=== PATIENT | female | born 1950 | race Hispanic/Latino ===

== ENCOUNTER 2020-12-25 10:38 | Outpatient (CLI) | payer MEDICARE, OTHER | END 2020-12-25 10:39 | disposition home or self-care (01) | LOC: CSHMRI 10:38 | PROVIDERS: ATTEND Psychiatry & Neurology Neurology | DX: G31.1 Senile degeneration of brain, not elsewhere classified (principal) | CPT/HCPCS: 70553; 82565 ==

== ENCOUNTER 2022-01-30 13:09 | Emergency (ER) | payer OTHER, MEDICARE | END 2022-01-30 16:07 | disposition home or self-care (01) | LOC: CSHERS 13:09 | DX: S09.90XA Unspecified injury of head, initial encounter (principal); S63.502A Unspecified sprain of left wrist, initial encounter; I25.10 Atherosclerotic heart disease of native coronary artery without angina pectoris; I11.0 Hypertensive heart disease with heart failure; I50.9 Heart failure, unspecified; E11.9 Type 2 diabetes mellitus without complications; E78.5 Hyperlipidemia, unspecified; E78.00 Pure hypercholesterolemia, unspecified; W01.198A Fall on same level from slipping, tripping and stumbling with subsequent striking against other object, initial encounter | CPT/HCPCS: 70450 ==

== ENCOUNTER 2023-11-12 10:23 | Emergency (ER) | payer MEDICARE, OTHER ==
[2023-11-12 10:54] LABS: Bilirubin Neg (Negative); Blood, Urine Negative (Negative); Clarity Slightly Cloudy (Clear); Glucose, Urine (Dipstick) Normal (Negative); Ketone, Urine Negative (Negative); Leukocyte 100 (Negative); Nitrite Negative (Negative); Protein, Urine (Dipstick) Negative (Neg-Trace); Urobilinogen Normal mg/dL (Less than 2)
[2023-11-12 11:03] LABS: Bacteria/HPF 3+ HPF (None Seen); RBC/HPF 0-3 HPF (0-3)
[2023-11-12 11:22] LABS: ALT (SGPT) 13 U/L (8-55); AST (SGOT) 24 U/L (5-34); Albumin 4.2 g/dL (3.4-4.8); Alkaline Phosphatase 111 U/L (40-110); Anion Gap 11 mmol/L (10-20); BUN (Urea Nitrogen) 39 mg/dL (9.8-20.1); Bilirubin, Total 0.2 mg/dL (0.2-1.2); Calc. Creatinine Clearance 0 mL/min (70-130); Calcium 8.8 mg/dL (7.8-10.44); Carbon Dioxide 27 mmol/L (23-31); Chloride 101 mmol/L (98-107); Estimated GFR 47; Globulin 2.1 g/dL (2.4-3.5); Glucose 191 mg/dL (83-110); Lipase 41 U/L (8-78); Magnesium 2.3 mg/dL (1.6-2.6); Protein, Total 6.3 g/dL (5.8-8.1); Sodium 134 mmol/L (136-145)
[2023-11-12 11:37] LABS: #Eosinphils 0.2 10x3/uL (0.0-0.5); #Monocytes 0.3 10x3/uL (0.0-1.1); #Neutrophils 2.3 10x3/uL (1.5-8.4); %Basophils 0.8 % (0.0-2.0); %Eosinophils 6.3 % (0.0-6.0); %Lymphocytes 24.2 % (18.0-47.0); %Monocytes 7.8 % (0.0-10.0); %Neutrophils 60.6 % (40.0-75.0); Hematocrit 34.7 % (34.9-44.5); Hemoglobin 11.2 g/dL (12.0-15.5); Mean Corpuscular HGB CONC 32.3 g/dL (32.0-36.0); Mean Corpuscular Hemoglobin 28.9 pg (27.0-33.0); Mean Corpuscular Volume 89.7 fl (81.6-98.3); Mean Platelet Volume 11.2 fl (7.4-10.4); Platelet Count 187 10x3/uL (150-450); RBC Distribution Width 13.3 % (11.5-14.5); Red Blood Cell (RBC) Count 3.87 10x6/uL (3.90-5.03); White Blood Cell (WBC) Count 3.8 10x3/uL (3.5-10.5)
== END 2023-11-12 12:38 | disposition home or self-care (01) ==
LOC: CSHERS 10:23
DX: R41.0 Disorientation, unspecified (principal); R53.1 Weakness; N18.9 Chronic kidney disease, unspecified
CPT/HCPCS: 70450; 71045; 80053; 81001; 83690; 83735; 84484; 85025; 87077; 87086; 87186; 93005

== ENCOUNTER 2024-02-14 15:33 | Emergency (ER) | payer OTHER ==
[2024-02-14] MEDS ORDERED: Ketorolac Tromethamine 30 MG (1 mL) VIAL ONE (16:46)
== END 2024-02-14 18:02 | disposition home or self-care (01) ==
LOC: CSHERS 15:33
DX: S80.01XA Contusion of right knee, initial encounter (principal); M17.11 Unilateral primary osteoarthritis, right knee; E11.9 Type 2 diabetes mellitus without complications; I11.0 Hypertensive heart disease with heart failure; I50.9 Heart failure, unspecified; W19.XXXA Unspecified fall, initial encounter
CPT/HCPCS: 73564; 93971; 96372; 99284; J1885

== ENCOUNTER 2024-05-20 12:10 | Observation (INO) | payer OTHER ==
[2024-05-20 13:30] LABS: #Basophils 0.03 10x3/uL (0.0-0.2); #Eosinphils 0.26 10x3/uL (0.0-0.5); #Monocytes 0.51 10x3/uL (0.0-1.1); #Neutrophils 2.53 10x3/uL (1.5-8.4); %Basophils 0.7 % (0.0-2.0); %Eosinophils 5.7 % (0.0-6.0); %Lymphocytes 27.4 % (18.0-47.0); %Monocytes 11.1 % (0.0-10.0); %Neutrophils 54.9 % (40.0-75.0); Hematocrit 35.1 % (34.9-44.5); Hemoglobin 10.9 g/dL (12.0-15.5); Mean Corpuscular HGB CONC 31.1 g/dL (32.0-36.0); Mean Corpuscular Hemoglobin 27.7 pg (27.0-33.0); Mean Corpuscular Volume 89.3 fL (81.6-98.3); Mean Platelet Volume 10.8 fL (7.4-10.4); Platelet Count 195 10x3/uL (150-450); RBC Distribution Width 13.1 % (11.5-14.5); Red Blood Cell (RBC) Count 3.93 10x6/uL (3.90-5.03); White Blood Cell (WBC) Count 4.6 10x3/uL (3.5-10.5)
[2024-05-20 13:50] LABS: ALT (SGPT) 54 U/L (8-55); AST (SGOT) 85 U/L (5-34); Albumin 3.2 g/dL (3.4-4.8); Alkaline Phosphatase 131 U/L (40-110); Anion Gap 12 mmol/L (10-20); BUN (Urea Nitrogen) 13 mg/dL (9.8-20.1); Bilirubin, Total 0.5 mg/dL (0.2-1.2); Calc. Creatinine Clearance 0 mL/min (70-130); Calcium 8.3 mg/dL (7.8-10.44); Carbon Dioxide 24 mmol/L (23-31); Chloride 104 mmol/L (98-107); Estimated GFR 51; Globulin 2.5 g/dL (2.4-3.5); Glucose 168 mg/dL (83-110); Potassium 4.1 mmol/L (3.5-5.1); Protein, Total 5.7 g/dL (5.8-8.1); Sodium 136 mmol/L (136-145)
[2024-05-20 14:24] LABS: Influenza A by NAA Not Detected (NotDetected); Influenza B by NAA Not Detected (NotDetected); SARS-CoV-2 NAA Rapid Test Not Detected (NotDetected)
[2024-05-20 14:25] LABS: Bilirubin Neg (Negative); Blood, Urine Negative (Negative); Clarity Clear (Clear); Glucose, Urine (Dipstick) Normal (Negative); Ketone, Urine Negative (Negative); Leukocyte Negative (Negative); Nitrite Negative (Negative); Protein, Urine (Dipstick) Negative (Neg-Trace); Urobilinogen Normal mg/dL (Less than 2)
[2024-05-20 15:08] LABS: Bacteria/HPF None Seen HPF (None Seen); CAUTI Indications for Culture Alt mental st,lethar; RBC/HPF None Seen HPF (0-3); Squamous Epithelial 0-3 HPF (0-3); Urine Culture Reflex No No; WBC/HPF 0-3 HPF (0-3)
[2024-05-20] MEDS ORDERED: Ondansetron PF 4 MG/2 ML Vial IVP PRN (17:08)
[2024-05-20 19:44] VITALS: BMI 34.7
[2024-05-20] MEDS: Sodium Chloride 0.9% 1,000 ML IV SCH (19:56)
[2024-05-20] MEDS: HYDROcodone/Acetaminophen 10/325 mg Tablet PO SCH (21:56)
[2024-05-20] MEDS: metFORMIN 500 MG TAB PO SCH (21:57)
[2024-05-20] MEDS: Amlodipine 5 MG TAB PO SCH (21:57)
[2024-05-21] MEDS: Acetaminophen 325 MG TAB PO PRN (01:04)
[2024-05-21 04:07] LABS: #Basophils 0.02 10x3/uL (0.0-0.2); #Eosinphils 0.23 10x3/uL (0.0-0.5); #Monocytes 0.42 10x3/uL (0.0-1.1); #Neutrophils 2.39 10x3/uL (1.5-8.4); %Basophils 0.5 % (0.0-2.0); %Eosinophils 5.6 % (0.0-6.0); %Lymphocytes 25.9 % (18.0-47.0); %Monocytes 10.2 % (0.0-10.0); %Neutrophils 57.8 % (40.0-75.0); Hematocrit 30.7 % (34.9-44.5); Hemoglobin 9.9 g/dL (12.0-15.5); Mean Corpuscular HGB CONC 32.2 g/dL (32.0-36.0); Mean Corpuscular Hemoglobin 28.1 pg (27.0-33.0); Mean Corpuscular Volume 87.2 fL (81.6-98.3); Mean Platelet Volume 10.5 fL (7.4-10.4); Platelet Count 186 10x3/uL (150-450); RBC Distribution Width 13.1 % (11.5-14.5); Red Blood Cell (RBC) Count 3.52 10x6/uL (3.90-5.03); White Blood Cell (WBC) Count 4.1 10x3/uL (3.5-10.5)
[2024-05-21 04:16] LABS: Anion Gap 11 mmol/L (10-20); BUN (Urea Nitrogen) 11 mg/dL (9.8-20.1); Calc. Creatinine Clearance 83 mL/min (70-130); Calcium 7.7 mg/dL (7.8-10.44); Carbon Dioxide 23 mmol/L (23-31); Chloride 106 mmol/L (98-107); Estimated GFR 80; Glucose 148 mg/dL (83-110); Potassium 3.9 mmol/L (3.5-5.1); Sodium 136 mmol/L (136-145)
[2024-05-21] MEDS: Pantoprazole DR 40 MG TAB PO SCH (10:14)
[2024-05-21] MEDS: Aspirin 81 mg Enteric Coated Tablet PO SCH (10:14)
[2024-05-21] MEDS: Nebivolol HCl 5 MG TAB PO SCH (11:13)
[2024-05-21] MEDS: Lorazepam 2 MG/ML VIAL SLOW IVP SCH (11:14)
[2024-05-21 16:15] VITALS: BP 159/84; TEMP 98.5
[2024-05-21] MEDS ORDERED: metFORMIN 500 MG TAB PO SCH (17:00)
[2024-05-21] MEDS ORDERED: Simvastatin 10 MG TAB PO SCH (21:00)
[2024-05-22] MEDS ORDERED: Nebivolol HCl 5 MG TAB PO SCH (09:00)
== END 2024-05-21 16:29 | disposition home or self-care (01) ==
LOC: CSHERS 12:10 → CSHTELE 17:09
PROVIDERS: ADMIT Internal Medicine; ATTEND Internal Medicine
DX: R53.1 Weakness (principal); I25.10 Atherosclerotic heart disease of native coronary artery without angina pectoris; E11.9 Type 2 diabetes mellitus without complications; E78.5 Hyperlipidemia, unspecified; N28.9 Disorder of kidney and ureter, unspecified; R41.0 Disorientation, unspecified; I10 Essential (primary) hypertension; Z88.0 Allergy status to penicillin; Z90.710 Acquired absence of both cervix and uterus; Z90.49 Acquired absence of other specified parts of digestive tract; Z98.890 Other specified postprocedural states; Z79.899 Other long term (current) drug therapy
CPT/HCPCS: 0240U; 70450; 70551; 71045; 80048; 80053; 81001; 83880; 85025 ×2; 93005; 97116; 97535; J2060; J7030 ×2; 36415; 96374; G0378